=== PATIENT | male | born 1970 | race Caucasian/White ===

== ENCOUNTER 2016-07-05 23:30 | Emergency (ER) | payer BC ==
[2016-07-05] MEDS ORDERED: NO MEDICATIONS (23:39)
== END 2016-07-06 02:23 | disposition home or self-care (01) ==
LOC: SED 23:30
DX: S81.811A Laceration without foreign body, right lower leg, initial encounter (principal); W26.9XXA Contact with unspecified sharp object(s), initial encounter; Y92.009 Unspecified place in unspecified non-institutional (private) residence as the place of occurrence of the external cause
CPT/HCPCS: 12002; 99283